=== PATIENT | female | born 1980 | race Two or more races ===

== ENCOUNTER 2017-03-22 18:53 | Emergency (ER) | payer MEDICAID ==
[~2017-03-22] VITALS: Ht 157.5 cm; Wt 131.5 kg
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
--- NOTE | 2017-03-22 19:40 | NUR ---
RAQUEL MCKEON AT BEDSIDE FOR EVAL.
[2017-03-22] MEDS ORDERED: LORAZEPAM 1 MG TABLET ONE (19:58)
[2017-03-22] MEDS ORDERED: LORAZEPAM 1 MG TABLET PO ONE (20:00)
--- NOTE | 2017-03-22 20:03 | NUR ---
PD AT BEDSIDE TALKING TO PT.
--- NOTE | 2017-03-22 20:56 | NUR ---
Patient discharged to home in stable condition. Written and verbal after care instructions given. Patient verbalizes understanding of instruction.
[2017-03-22 20:57] VITALS: BP 140/98
== END 2017-03-22 20:59 | disposition home or self-care (01) ==
LOC: ER 18:56
DX: S39.012A Strain of muscle, fascia and tendon of lower back, initial encounter (principal); F41.9 Anxiety disorder, unspecified; I10 Essential (primary) hypertension; Y04.0XXA Assault by unarmed brawl or fight, initial encounter; Y93.89 Activity, other specified; Y92.89 Other specified places as the place of occurrence of the external cause; Y99.8 Other external cause status
CPT/HCPCS: 99284; A4606; Z7610